=== PATIENT | male | born 1960 | race African-American/Black ===

== ENCOUNTER 2019-10-29 07:50 | Day surgery (SDC) | payer MEDICARE, OTHER ==
[2019-10-26 09:37] LABS: HEMATOCRIT 49.5 % (37.9-51.0); HEMOGLOBIN 16.5 g/dL (13.5-17.0); MEAN CORPUSCULAR HEMOGLOBIN 30.7 pg (27.0-33.4); MEAN CORPUSCULAR HGB CONC 33.4 g/dL (32.0-36.0); MEAN CORPUSCULAR VOLUME 92 fl (80-97); PLATELET COUNT 201 10^3/uL (150-450); RED BLOOD COUNT 5.39 10^6/uL (4.35-5.55); RED CELL DISTRIBUTION WIDTH 13.4 % (11.5-14.0)
--- NOTE | 2019-10-26 09:41 | EKG REPORT ---
SEVERITY:- NORMAL ECG - SINUS RHYTHM : Confirmed by: Jory Walker 26-Oct-2019 09:40:24
[~2019-10-29 07:50] MED LIST: ACETAMINOPHEN 325 MG TABLET PO PRN; CEFAZOLIN SODIUM 1 GM in DEXTROSE 5%-WATER 50 ML IV PRN; LACTATED RINGERS 1000 ML IV PRN; LIDOCAINE 0.5% INJ-PF (5 MG/ML) 50 ML SDV SUBCUT PRN
[2019-10-29] MEDS ORDERED: HYDROMORPHONE HCL INJ/PF 2 MG/ML AMPULE ONE (09:26)
[2019-10-29] MEDS ORDERED: FENTANYL CITRATE INJ/PF 100 MCG/2 ML AMPUL ONE (09:26)
[2019-10-29] MEDS ORDERED: ONDANSETRON HCL INJ/PF 4 MG/2 ML SDV ONE (09:26)
[2019-10-29] MEDS ORDERED: DEXAMETHASONE SOD PHOSPHATE INJ 4 MG/1 ML VIAL ONE (09:26)
[2019-10-29] MEDS ORDERED: MIDAZOLAM 2 MG/2 ML INJ ONE (09:26)
[2019-10-29] MEDS ORDERED: PROPOFOL INJ 200 MG/20 ML VIAL IV ONE (09:27)
[2019-10-29] MEDS ORDERED: DIPHENHYDRAMINE HCL 50 MG/ML VIAL IV PRN (10:41)
[2019-10-29] MEDS ORDERED: MEPERIDINE HCL/PF INJ 25 MG/1 ML DISP.SYRIN IV PRN (10:41)
[2019-10-29] MEDS ORDERED: MORPHINE SULFATE 10 MG/ML INJ IV PRN ×2 (10:41→13:30)
[2019-10-29] MEDS ORDERED: PROMETHAZINE HCL INJ 25 MG/1 ML VIAL IV PRN (10:41)
[2019-10-29] MEDS ORDERED: FENTANYL CITRATE INJ/PF 100 MCG/2 ML AMPUL IV PRN ×3 (10:41)
--- NOTE | 2019-10-29 11:14 | Operative Report ---
Nonrecallable Operative Report DATE OF SURGERY: 10/29/19 PREOPERATIVE DIAGNOSIS: Right inguinal hernia POSTOPERATIVE DIAGNOSIS: Bilateral inguinal hernias OPERATION: Laparoscopic bilateral inguinal hernia repair SURGEON: RYAN POTTER GLASS CUTTER HELPER: ROSANNA CHOUDHARY ANESTHESIA: GA TISSUE REMOVED OR ALTERED: None COMPLICATIONS: None ESTIMATED BLOOD LOSS: 0 INTRAOPERATIVE FINDINGS: Large bilateral direct inguinal hernias PROCEDURE: Procedure note; Patient was brought to the operating room and awake alert in stable condition placed in the operating table supine position induced under general anesthesia intubated. After appropriate timeout and site verification the procedure commenced. Using a 15 blade a infraumbilical incision was made in the umbilical crease and dissection was carried down through subcutaneous tissue with Bovie cautery the fascia of the rectus muscle was identified. A transverse incision was made in the anterior rectus sheath and the rectus muscle was identified it was retracted laterally on top of the posterior sheath we placed the Spacemaker balloon and insufflated it under direct vision with the scope. This created a space in the retroperitoneum. The balloon was removed and the working trocar was placed. 2 midline 5 mm ports were also placed under direct vision. Attention was then turned to the right side first. The peritoneum was dissected off the transversalis fascia laterally and this was continued inferiorly until we identified the cord structures. The cord structures were dissected isolating a sac away from the cord structures it was fairly well incarcerated into the groin. With some dissection we were able to mobilize the sac out of the groin and posteriorize it proximally. We had identified the epigastric artery Xiang's ligament and lateral edge of the rectus muscle there was no direct inguinal hernia. We then used a piece of polypropylene mesh 3 x 6 cm with a slit down the side passed into the retroperitoneum posteriorly fixed to Xiang's ligament anterior to the rectus fascia lateral to the transversalis fascia wrapping the cord structures. This resulted in a good repair and attention was then turned to the left side. Similarly on the left side we dissected the peritoneum away from the transversalis fascia laterally continue this inferiorly to identify the cord structures patient also had a sac exiting the internal ring and this was dissected away from the cord structures and pulled from the internal ring it was also posteriorizd and then similarly we used a piece of 3 x 6 cm polypropylene mesh placed into the retroperitoneum fixed posteriorly to Xiang's ligament anterior to the rectus fascia laterally to the transversalis fascia using absorber tacks as we did on the right side. After ensuring adequate coverage we reduce the retroperitoneum air and remove the ports the umbilical port site was closed with 0 Vicryl in the fascia and all 3 skin incisions were closed with intracuticular 4-0 Biosyn Steri-Strips completed the procedure estimated blood loss was negligible sponge needle counts correct x2 The patient was awakened in the operating extubated transferred recovery in stable condition. Rosanna ARREGUIN was present for the entire procedure for help with wound retraction wound closure
[2019-10-29] MEDS ORDERED: OXYCODONE-ACETAMINOPHEN 5-325 MG TABLET PO PRN (11:15)
--- NOTE | 2019-10-29 11:15 | Discharge Summary ---
Discharge Summary (SDC) - Discharge Final Diagnosis: Bilateral inguinal hernias Date of Surgery: 10/29/19 Discharge Date: 10/29/19 Condition: Good [facility]errals: [facility] [[facility] - Discharge Diet: As Tolerated Discharge Activity: No Lifting Over 10 Pounds Report the Following to Your Physician Immediately: Shortness of Breath, Nausea, Vomiting, Increase in Pain - Patient needs a follow-up appointment with me in 2 weeks
[2019-10-29] MEDS ORDERED: BUPIVACAINE INJ/PF LIPOSOME/PF 266 MG/20 ML SDV ONE (11:31)
[2019-10-29] MEDS ORDERED: OXYCODONE-ACETAMINOPHEN 5-325 MG TABLET ONE (11:59)
[2019-10-29] MEDS ORDERED: GLUCAGON,HUMAN RECOMB 1 MG INJ SUBCUT PRN (13:30)
[2019-10-29] MEDS ORDERED: POTASSI CL 20 MEQ/D5-1/2NS 1L 1,000 ML IV PRN (13:30)
[2019-10-29] MEDS ORDERED: ONDANSETRON HCL INJ/PF 4 MG/2 ML SDV IV PRN (13:30)
[2019-10-29] MEDS ORDERED: DEXTROSE 40% GEL 15 GM TUBE PO PRN ×2 (13:30)
[2019-10-29] MEDS ORDERED: DEXTROSE 50%-WATER 25 GM/50 ML DISP.SYRIN IV PRN ×2 (13:30)
[2019-10-29] MEDS ORDERED: HEPARIN SOD (PORCINE) 5,000 UNIT/ML 1 ML VIAL SUBCUT SCH (14:00)
[2019-10-29] MEDS ORDERED: CEFAZOLIN SODIUM 2 GM in DEXTROSE 5%-WATER 100 ML IV SCH (14:00)
[2019-10-29] MEDS ORDERED: CEFAZOLIN 2 GM/D5W RTU 50 ML IV SCH (14:00)
[2019-10-29 16:11] VITALS: BP 113/82
[2019-10-29] MEDS ORDERED: METRONIDAZOLE 500 MG/NS RTU 500 MG/100 ML RTUPB IV SCH (18:00)
[2019-10-29] MEDS ORDERED: FAMOTIDINE INJ/PF 20 MG/2 ML SDV IV SCH (22:00)
[2019-10-30] MEDS ORDERED: LISINOPRIL 10 MG TABLET PO SCH (10:00)
== END 2019-10-29 13:10 | disposition home or self-care (01) ==
LOC: OROUT 07:50
PROVIDERS: ATTEND Surgery
DX: K40.20 Bilateral inguinal hernia, without obstruction or gangrene, not specified as recurrent (principal); I10 Essential (primary) hypertension; E78.00 Pure hypercholesterolemia, unspecified; Z79.899 Other long term (current) drug therapy; Z01.818 Encounter for other preprocedural examination
CPT/HCPCS: 93005; 36415; 85027; 93010; 49650; C1781; C1713; J2250; J0690; J1100; J3010; A9270; J1170; J2405; J7060; J2704; C9290; 840